=== PATIENT | female | born 1990 | race Caucasian/White ===

== ENCOUNTER 2017-06-21 18:21 | Emergency (ER) | payer SELFPAY ==
[2017-06-21 18:28] VITALS: BP 131/82; BMI 23.9
--- NOTE | 2017-06-21 19:02 | DR.GENAD ---
HPI - PCP Primary Care Physician: SULTANA - HPI Comment HPI Comment: PATIENT HAVE EXERSIONAL DYSPNEA, ALSO HAVING STRESS IN HER LIFE FROM PERSONAL FAMILY MATTERS. DENIES FEVER. DENIES TRAUMA TO HER CHEST. NO DYSURIA. NO PREVIOUS EPISODES OF CHEST PAIN. - Complaint/Symptoms Chief Complaint Doctors Comments: CHEST PAIN, SOB TIMES 4 DAYS. Chief Complaint:: SOB AND UNABLE TO CATCH BREATH SINCE WEDNESDAY WORSENING TODAY - Nurses notes reviewed Nurses Notes Review: Yes - Source History Provided: Patient - Mode of Arrival Mode of Arrival: Ambulatory - Timing Onset of Chief Complaint: 06/17/17 Came on: Suddenly - Duration Duration: Constant Duration: Days - Severity Severity: Moderate PMH - PMH Past Medical History: No Past Surgical History: Yes Surgical History: Tonsillectomy - Family History History of Family Medical Conditions: No - Social History Does patient currently use any type of tobacco product: Yes Have you used tobacco products in the last 12 months: Yes Type of Tobacco Use: Cigarettes How many years tobacco product used: 12 Does any household member use tobacco: No Alcohol Use: None Do you use any recreational Drugs:: No Lives With: Family Lives Where: Home - infectious screening In the last 2 months have you had wt loss of >10#?: NO Have you had fever, night sweats or hemotysis?: No Have you traveled outside the country in the last 6 months?: No Isolation: Standard ROS - Review of Systems Constitutional: Weakness, Fatigue Eyes: No Symptoms Reported ENTM: No Symptoms Reported Respiratoy: Short of Breath Cardiovascular: Chest Pain Gastrointestinal/Abdominal: No Symptoms Reported Genitourinary: No Symptoms Reported Neurological: No Symptoms Reported Musculoskeletal: No Symptoms Reported Integumentary: No Symptoms Reported Hematologic/Lymphatic: No Symptoms Reported Endocrine: No Symptoms Reported All Other Systems: Reviewed and Negative PE - Vital Signs Vitals: Temperature 98.5 F Pulse Rate 97 Respiratory Rate 20 Blood Pressure 131/82 O2 Sat by Pulse Oximetry 98 - General Limitations: No Limitations General Appearance: Alert - Head Head Exam: Normal Inspection - Eyes Eye exam: Normal Appearance - ENT ENT Exam: Normal External Ear Exam External Ear Exam: Normal External Inspection TM/Canal Exam: Bilateral Normal Nose Exam: Normal Nose Exam Mouth Exam: Normal Inspection Throat Exam: Normal Inspection - Neck Neck Exam: Trachea Midline. negative: Tenderness, Meningismus, Lymphadenopathy - Chest Chest Inspection: Symmetric Chest Wall Rise - Respiratory Respiratory Exam: Normal Lung Sounds Bilat Respiratory Exam: Bilateral Clear to Auscultation - Cardiovascular Cardiovascular Exam: Regular Rate, Normal Rhythm, Normal Heart Sounds - Abdominal Exam Abdominal Exam: Normal Bowel Sounds, Soft. negative: Tenderness - Extremities Extremities Exam: Normal Inspection. negative: Calf Tenderness - Back Back Exam: Normal Inspection - Neurologic Neurological Exam: Alert, Oriented X3 - Psychiatric Psychiatric Exam: Anxious - Skin Skin Exam: Normal Color MDM - Differential Diagnosis Differential Diagnosis: CHEST PAIN, SOB/RESP DISTRESS Course - Treatment Treatment: SEE ORDERS. - Education/Counseling Education/Counseling: Patient, Education Educated On: Diagnosis ROR - Labs Reviewed Laboratory Results Reviewed?: Yes Result Diagrams: 06/21/17 19:24 06/21/17 19:24 Laboratory: WBC 6.8 X10^3/uL (3.6-10.0) 06/21/17 19:24 RBC 5.17 X10^6/uL (3.5-5.4) 06/21/17 19:24 Hgb 15.1 g/dL (12.0-16.0) 06/21/17 19:24 Hct 44.3 % (36.0-47.0) 06/21/17 19:24 MCV 85.6 fL (80.0-100.0) 06/21/17 19:24 MCH 29.3 pg (27.0-34.0) 06/21/17 19:24 MCHC 34.2 g/dL (33.0-35.0) 06/21/17 19:24 RDW 13.2 % (11.6-16.5) 06/21/17 19:24 Plt Count 223 X10^3/uL (150.0-450.0) 06/21/17 19:24 MPV 7.2 fL (7.4-11.0) L 06/21/17 19:24 Neut % 54.6 % (42.0-75.0) 06/21/17 19:24 Lymph % 34.9 % (21.0-51.0) 06/21/17 19:24 [place] % 8.0 % (0.0-13.0) 06/21/17 19:24 Eos % 1.7 % (0.9-2.9) 06/21/17 19:24 Baso % 0.8 % (0.2-1.0) 06/21/17 19:24 Neut # 3.7 x10^3/uL (2.2-4.8) 06/21/17 19:24 Lymph # 2.4 X10^3/uL (1.3-2.9) 06/21/17 19:24 [place] # 0.5 x10^3/uL (0.3-0.8) 06/21/17 19:24 Eos # 0.1 x10^3/uL (0.0-0.2) 06/21/17 19:24 Baso # 0.1 X10^3/uL (0.0-0.1) 06/21/17 19:24 Absolute Nucleated RBC 0.0 /100WBC 06/21/17 19:24 D-Dimer 112 ng/mL (0-400) 06/21/17 19:24 Sample Site Rr 06/21/17 22:00 ABG pH 7.450 (7.35-7.45) 06/21/17 22:00 ABG pCO2 34.0 mmHg (35.0-45.0) L 06/21/17 22:00 ABG pO2 74.0 mmHg (80.0-100.0) L 06/21/17 22:00 ABG HCO3 23.6 mmol/L (22-26) 06/21/17 22:00 ABG O2 Saturation 95.0 % (90-100) 06/21/17 22:00 ABG Base Excess 0.1 mmol/L (-2.0-2.0) 06/21/17 22:00 Cristino Test Pos 06/21/17 22:00 A-a Gradient 33.0 mmHg 06/21/17 22:00 FiO2 21.000 06/21/17 22:00 Blood Gas Comments Pt kaylin well. cdn 06/21/17 22:00 Sodium 140 mmol/L (136-145) 06/21/17 19:24 Corrected Sodium TNP 06/21/17 19:24 Potassium 3.9 mmol/L (3.5-5.1) 06/21/17 19:24 Chloride 105 mmol/L (98-107) 06/21/17 19:24 Carbon Dioxide 27.6 mmol/L (21-32) 06/21/17 19:24 BUN 13 mg/dL (7-18) 06/21/17 19:24 Creatinine 0.82 mg/dL (0.55-1.02) 06/21/17 19:24 Est GFR (MDRD) Af Amer > 60 (>60) 06/21/17 19:24 Est GFR (MDRD) Non-Af > 60 (>60) 06/21/17 19:24 Glucose 85 mg/dL (65-99) 06/21/17 19:24 Calcium 8.6 mg/dL (8.5-10.1) 06/21/17 19:24 Corrected Calcium TNP 06/21/17 19:24 Total Bilirubin 0.10 mg/dL (0.2-1.0) L 06/21/17 19:24 AST 18 Units/L (15-37) 06/21/17 19:24 ALT 18 Units/L (12-78) 06/21/17 19:24 Alkaline Phosphatase 70 Units/L (46-116) 06/21/17 19:24 Creatine Kinase 75 Units/L (26-192) 06/21/17 19:24 CK-MB (CK-2) < 1.0 ng/mL (0-4.0) 06/21/17 19:24 CK/CKMB % Calc 1.3 % (<4) 06/21/17 19:24 Troponin I < 0.02 ng/mL (0-1.5) 06/21/17 19:24 Total Protein 7.6 g/dL (6.4-8.2) 06/21/17 19:24 Albumin 4.1 g/dL (3.4-5.0) 06/21/17 19:24 Globulin 3.5 g/dL (2.5-4.5) 06/21/17 19:24 Albumin/Globulin Ratio 1.2 Ratio (1.1-2.1) 06/21/17 19:24 - XRAY XRAY Interpreted by: Radiologist XRAY Findings: REPORT DISCUSS WITH PATIENT. - EKG Rhythm: NSR (EKG NOTED) - Diagnosis Discharge Problem: Acute dyspnea Chest pain Qualifiers: Chest pain type: unspecified Qualified Code(s): R07.9 - Chest pain, unspecified - Discharge Plan Disposition: 01 HOME, SELF-CARE Condition: Stable - Follow ups/Referrals Follow ups/Referrals: JESSICA BURK [STAFF PHYSICIAN] - 1 day NFD,None [Primary Care Provider] - 1 day - Instructions Instructions: Shortness of Breath, [id number], Chest Pain Observation Additional Instructions: RETURN TO ED IF WORSE.
[2017-06-21 19:36] LABS: BASOPHILS # (AUTO) 0.1 X10^3/uL (0.0-0.1); BASOPHILS % (AUTO) 0.8 % (0.2-1.0); EOSINOPHILS # (AUTO) 0.1 x10^3/uL (0.0-0.2); EOSINOPHILS % (AUTO) 1.7 % (0.9-2.9); HEMATOCRIT 44.3 % (36.0-47.0); HEMOGLOBIN 15.1 g/dL (12.0-16.0); LYMPHOCYTES # (AUTO) 2.4 X10^3/uL (1.3-2.9); LYMPHOCYTES % (AUTO) 34.9 % (21.0-51.0); MEAN CORPUSCULAR HEMOGLOBIN 29.3 pg (27.0-34.0); MEAN CORPUSCULAR HGB CONC 34.2 g/dL (33.0-35.0); MEAN CORPUSCULAR VOLUME 85.6 fL (80.0-100.0); MEAN PLATELET VOLUME 7.2 fL (7.4-11.0); MONOCYTES # (AUTO) 0.5 x10^3/uL (0.3-0.8); NEUTROPHILS # (AUTO) 3.7 x10^3/uL (2.2-4.8); NEUTROPHILS % (AUTO) 54.6 % (42.0-75.0); PLATELET COUNT 223 X10^3/uL (150.0-450.0); RED BLOOD COUNT 5.17 X10^6/uL (3.5-5.4); RED CELL DISTRIBUTION WIDTH 13.2 % (11.6-16.5); WHITE BLOOD COUNT 6.8 X10^3/uL (3.6-10.0)
[2017-06-21 20:01] LABS: D DIMER 112 ng/mL (0-400)
[2017-06-21 20:53] LABS: BLOOD UREA NITROGEN 13 mg/dL (7-18); CALCIUM 8.6 mg/dL (8.5-10.1); CARBON DIOXIDE 27.6 mmol/L (21-32); CHLORIDE 105 mmol/L (98-107); CREATININE 0.82 mg/dL (0.55-1.02); GLUCOSE 85 mg/dL (65-99); SODIUM 140 mmol/L (136-145); TROPONIN I < 0.02 ng/mL (0-1.5); eGFR BLACK RACES > 60 (>60); eGFR NON BLACK RACES > 60 (>60)
[2017-06-21 20:57] LABS: ALANINE AMINOTRANSFERASE 18 Units/L (12-78); ALBUMIN 4.1 g/dL (3.4-5.0); ALKALINE PHOSPHATASE 70 Units/L (46-116); ASPARTATE AMINO TRANSFERASE 18 Units/L (15-37); CKMB % 1.3 % (<4); CREATINE KINASE 75 Units/L (26-192); CREATINE KINASE MB < 1.0 ng/mL (0-4.0); TOTAL PROTEIN 7.6 g/dL (6.4-8.2)
--- NOTE | 2017-06-21 22:02 | RAD ---
Chest, one view Indication: Shortness of breath Comparison: None Findings: The heart size is normal. The lungs are clear without focal infiltrates or pleural effusio n. The bony thorax is unremarkable. Impression: No acute cardiopulmonary disease. Reported By:
[2017-06-21 22:06] LABS: ABG ALLEN TEST POS; ABG BASE EXCESS 0.1 mmol/L (-2.0-2.0); ABG HCO3 23.6 mmol/L (22-26)
== END 2017-06-21 22:26 | disposition home or self-care (01) ==
LOC: ER 18:39
DX: R07.89 Other chest pain (principal); R06.00 Dyspnea, unspecified
CPT/HCPCS: 36415; 36600; 71010; 80053; 82550; 82553; 82803; 84484; 85025; 85378; 93005; 93010; 99283